=== PATIENT | male | born 1975 | race Caucasian/White ===

== ENCOUNTER 2022-11-12 16:46 | Emergency (ER) | payer OTHER, SELFPAY ==
[2022-11-12] VITALS (8 sets, daily range): BP systolic 95–107; BP diastolic 51–75; PULSE 88–100; RESP 12–24; TEMP 36.5–36.8; O2SAT 100
--- NOTE | ~2022-11-12 | CT_ITS ---
EXAMINATION: CT abdomen pelvis w con DATE: 11/12/2022 21:28 INDICATION: Left lower quadrant abdominal pain. Black tarry stools. Diaphoresis. TECHNIQUE: Computed tomography (CT) of the abdomen and pelvis was performed with 100 CC Omnipaque 350 intravenous contrast. Automated exposure control and iterative reconstruction technique were employe d. Exam dose: 345.36 mGy-cm total exam DLP. COMPARISON: 12/27/2009 CT abdomen pelvis is not available from PACS at this time. FINDINGS: The lung bases are clear. Normal heart size. No pericardial or pleural effusion. The gallbladder appears to be surgically absent. There is moderate prominence of the intrahepatic and extrahepatic bile ducts, which may be secondary to the cholecystectomy. Prominent varices are identified. The spleen measures 13 cm vertical dimension, it upper normal range . Prominent amorphous calcifications of the uncinate process and head of the pancreas consistent with c hronic pancreatitis. No hepatic, splenic or pancreatic space-occupying mass lesion is evident. Normal morphology of the adrenal glands. Small cyst of the lower pole of the left kidney. The kidneys are otherwise unremarkable. No urinary t ract calculus or hydroureteronephrosis. Normal caliber of the abdominal aorta. No intraperitoneal or retroperitoneal or pelvic mass lesion or adenopathy or ascites is detected. Moderate prostate enlargement. The urinary bladder is unremarkable. There is a prominent amount fecal material in the colon. No bowel obstruction is detected. Normal jada endix. Included skeletal structures are unremarkable. IMPRESSION: Varices and borderline splenomegaly consistent with portal venous hypertension Chronic pancreatitis Status post cholecystectomy, which may account for moderate prominence of the intrahepatic and extrah epatic bile ducts Reviewed, dictated and finalized at [facility]. Reviewed, dictated and finalized at [facility]. IMPRESSION: Varices and borderline splenomegaly consistent with portal venous hypertension Chronic pancreatitis Status post cholecystectomy, which may account for moderate prominence of the i ntrahepatic and extrahepatic bile ducts
--- NOTE | ~2022-11-12 | XR_ITS ---
EXAMINATION: XR chest 1V portable DATE: 11/13/2022 00:28 INDICATION: Upper gastrointestinal bleed TECHNIQUE: frontal view of the chest was obtained. COMPARISON: Chest radiograph dated 12/28/2009 FINDINGS: The lungs remain clear with no focal airspace opacities, pulmonary edema, pleural effusion or pneumot horax. The cardiomediastinal silhouette is normal. Visualized bones and soft tissues are unremarkable . IMPRESSION: 1. No acute cardiopulmonary disease. Reviewed, dictated and finalized at [facility].
[2022-11-12 17:56] LABS: Basophils Absolute Auto 0.1 K/mm3 (0.0-0.1); Basophils Percent Auto 1.1 % (0.2-1.2); Eosinophils Percent Auto 0.3 % (0-4.4); Hematocrit 31.6 % (42.0-52.0); Hemoglobin 10.6 g/dL (14.0-18.0); Immature Granulocyte Absolute 0.05 K/mm3 (0.00-0.031); Immature Granulocyte Percent A 0.5 % (0-0.5); Lymphocytes Absolute Auto 1.42 K/mm3 (0.9-3.2); Mean Corpuscular HGB Conc 33.5 g/dl (32-36); Mean Corpuscular Hemoglobin 31.1 pg (26-34); Mean Corpuscular Volume 92.7 fl (80-100); Mean Platelet Volume 11.3 fl (7.4-10.4); Monocytes Percent Auto 10.4 % (2.6-8.5); Neutrophils Absolute Auto 6.9 K/mm3 (1.3-6.7); Neutrophils Percent Auto 72.7 % (45.5-73.1); Platelet Count Result 234 k/mm3 (150-375); Red Blood Count 3.41 M/mm3 (4.6-6.20); White Blood Count 9.5 K/mm3 (4.5-10.0)
[2022-11-12 18:05] LABS: Alanine Aminotransferase 26 U/L (6-50); Albumin Level 3.8 g/dL (3.5-5.1); Alkaline Phosphatase 62 U/L (38-126); Anion Gap 12 mmol/L (8-16); Aspartate Amino Transferase 24 U/L (17-59); Bilirubin,Total 0.8 mg/dL (0.2-1.3); Blood Urea Nitrogen 20 mg/dL (9-20); Calcium 8.7 mg/dL (8.4-10.2); Carbon Dioxide 26 mmol/L (22-30); Chloride 93 mmol/L (98-107); Estimated CRCL calculation 116 ml/min; Estimated Glomerular Filt Rate > 60; Glucose 441 mg/dL (65-110); Potassium 4.8 mmol/L (3.4-5.0); Sodium 131 mmol/L (137-145)
[2022-11-12 18:28] LABS: INR 1.2; Prothrombin Time 14.3 Seconds (11.1-14.7)
[2022-11-12 18:29] LABS: Partial Thromboplastin Time 23.3 SECONDS (22.3-36.8)
[2022-11-12] MEDS: SODIUM CHLORIDE 0.9% IV 2,000 ML 999 ML IV CONT (23:21)
[2022-11-13] VITALS (33 sets, daily range): BP systolic 90–117; BP diastolic 56–89; PULSE 71–96; RESP 9–20; TEMP 36.4–36.6; O2SAT 97–100
--- NOTE | 2022-11-13 00:10 | ED.GENADULT ---
HPI - General Adult General Chief complaint: GI Bleed Stated complaint: blood in stool, diaphoretic Time Seen by Provider: 11/12/22 22:49 History of Present Illness HPI narrative: This is a 47-year-old male presenting to ED with dark tarry stools. Starting 2 days ago the patient had an episode where he vomited up small amount of red blood then has been having dark tarry diarrhea since then. The diarrhea had relented and is more solid however today he became dizzy diaphoretic and lightheaded. He then started to have sharp left-sided abdominal pain that radiates to the right side that is 7 out 10 intensity and constant. He has never experienced before there are no exacerbating alleviating factors. He has had chills throughout the day but no fevers. No chest pain or difficulty breathing. Patient had a complicated medical course approximately 10 years ago when he had an infected gallbladder that resulted in open surgery, trach and PEG tube that he has since recovered from. Asa result of his surgery he is now a type 1 diabetic and takes insulin. Related Data Allergies Allergy/AdvReac Type Severity Reaction Status Date / Time No Known Allergies Allergy Verified 09/29/15 21:24 [facility] Past Medical History Medical History Cholecystectomy planned Pacemaker Now removed Type 1 diabetes mellitus with hyperglycemia, with long-term current use of insulin Family History Family History Other Family history of alcoholism Family history of arthritis Family history of thyroid disease Social History Social History Smoking status: Never smoker Alcohol intake: current Exam Narrative: APPEARANCE: No apparent distress. Head: atraumatic. EYES: EOMI, NOSE: Atraumatic NECK: Trachea midline RESPIRATORY: No increased rate of breathing , clear to auscultation CARDIOVASCULAR: slightly tachycardic, slightly pale ABDOMINAL: Non-distended, tenderness to palpation on the left side of the abdomen with voluntary guarding Rectal exam revealed: reddish black stool in the rectal vault that was Hemoccult positive. MUSCULOSKELETAl: No obvious deformities NEURO: Alert. Moving 4/4 extremities SKIN:: Warm, dry. Normal color PSYCHIATRIC: Normal affect Course Vital Signs Vital signs: Vital Signs Temperature 97.7 F 04/06/23 17:30 Pulse Rate 100 11/12/22 17:30 Respiratory Rate 18 11/12/22 17:30 Blood Pressure 95/51 L 11/12/22 17:30 Pulse Oximetry 100 11/12/22 17:30 Oxygen Delivery Room Air 11/12/22 17:30 Temperature 97.6 F 11/13/22 08:21 Pulse Rate 73 11/13/22 08:21 Respiratory Rate 12 11/13/22 08:21 Blood Pressure 97/63 L 11/13/22 08:21 Pulse Oximetry 100 11/13/22 08:21 Oxygen Delivery Room Air 11/12/22 17:30 Medical Decision Making MDM Narrative Medical decision making narrative: -Presentation: 47-year-old male presenting with Melanotic stools and abdominal pain. Lab work, type and screen CT abdomen pelvis have been ordered. 2 large-bore IVs are started. Patient was fluid resuscitated, given 80 mg Protonix And ceftriaxone. -DDX includes but is not limited to: peptic ulcer disease, upper GI bleed, -Co-morbidities complicating care: type 1 diabetes, complicated surgical course -Social determinants of health: patient works in sales. Recently moved back to the area for work. -External Chart Review: None -Hx from independent Sources: mother @ bedside Saima -Discussion of Management/Consultants: Mary Transfer line - Dr. Gomez , Hospitalist, [facility]. -Independent interpretation of studies: CBC showed initial hemoglobin of 10.6. No white blood cell count. Metabolic panel showed hyponatremia and hypochloremia. Kidney function within normal limits. Glucose elevated at 440. no evidence of DKA/HHS CT abdome
--- NOTE | 2022-11-13 00:15 | ECG_ITS ---
Measurements Intervals Emmett Rate: 85 P: 37 MO: 166 QRS: -11 QRSD: 95 T: 42 QT: 389 QTc: 463 Interpretive Statements SINUS RHYTHM LOW QRS VOLTAGE LEFTWARD AXIS BORDERLINE ECG NO PREVIOUS ECG AVAILABLE FOR COMPARISON Electronically Signed On 11-13-2022 7:53:22 CDT by Jaxon Quiros M.D.
[2022-11-13] MEDS: HYDROmorphone HCL INJ (*CRX) 1 MG/ML SYR 0.5 MG IV PUSH ×2 (00:42→06:48)
[2022-11-13] MEDS: PANTOPRAZOLE SODIUM IV 40 MG VIAL 80 MG IV PUSH (00:43)
[2022-11-13 02:35] LABS: Influenza A QL RT-PCR Negative (Negative); Influenza B QL RT-PCR Negative (Negative); RSV RNA, RT-PCR Negative (Negative); SARS-CoV-2 RNA PCR Negative
[2022-11-13] MEDS: OCTREOTIDE ACETATE 50 MCG/ML VIAL IV PUSH (02:49)
[2022-11-13] MEDS: METOCLOPRAMIDE HCL INJ 10 MG/2 ML VIAL IV PUSH (03:48)
[2022-11-13 04:05] LABS: Hematocrit 24.3 % (42.0-52.0); Hemoglobin 8.5 g/dL (14.0-18.0)
[2022-11-13] MEDS: SODIUM CHLORIDE 0.9% IV 1,000 ML 999 ML (06:49)
[2022-11-13] MEDS: SODIUM CHLORIDE 0.9% IV 1,000 ML 125 ML IV CONT (06:49)
[2022-11-13] MEDS: TUBING, BLOOD SET 1 EACH XX (06:56)
== END 2022-11-13 08:30 | disposition short-term general hospital (02) ==
PROVIDERS: Emergency Medicine; Emergency Provider Emergency Medicine; PCP Family Medicine
DX: I85.01 Esophageal varices with bleeding (principal); D64.9 Anemia, unspecified; E10.9 Type 1 diabetes mellitus without complications; Z79.4 Long term (current) use of insulin; Z20.822 Contact with and (suspected) exposure to COVID-19
CPT/HCPCS: 36415; 36430; 71045; 74177; 80053; 85014; 85018; 85025; 85610; 85730; 86850; 86900; 86901; 86923; 87637; 93005; 96360; 96365; 96375; 99285; C9113; J0696; J1170; J2354; J2765; J7030; P9016; Q9967

== ENCOUNTER 2023-12-30 11:19 | Outpatient (CLI) | payer OTHER, SELFPAY ==
[2023-12-30 13:51] LABS: Basophils Absolute Auto 0.1 K/mm3 (0.0-0.1); Basophils Percent Auto 1.3 % (0.2-1.2); Eosinophils Absolute Auto 0.1 K/mm3 (0-0.3); Eosinophils Percent Auto 1.5 % (0-4.4); Hematocrit 47.6 % (42.0-52.0); Immature Granulocyte Absolute 0.01 K/mm3 (0.00-0.031); Immature Granulocyte Percent A 0.2 % (0-0.5); Lymphocytes Absolute Auto 0.79 K/mm3 (0.9-3.2); Lymphocytes Percent Auto 16.5 % (18.3-44.2); Mean Corpuscular HGB Conc 33.6 g/dl (32-36); Mean Corpuscular Hemoglobin 30.4 pg (26-34); Mean Corpuscular Volume 90.5 fl (80-100); Mean Platelet Volume 12.5 fl (7.4-10.4); Monocytes Absolute Auto 0.6 K/mm3 (0.1-0.6); Monocytes Percent Auto 13.1 % (2.6-8.5); Neutrophils Absolute Auto 3.2 K/mm3 (1.3-6.7); Neutrophils Percent Auto 67.4 % (45.5-73.1); Platelet Count Result 151 k/mm3 (150-375); Red Blood Count 5.26 M/mm3 (4.6-6.20); Red Cell Distribution Width 13.3 % (11.5-14.5); White Blood Count 4.8 K/mm3 (4.5-10.0)
[2023-12-30 14:28] LABS: Alanine Aminotransferase 74 U/L (6-50); Albumin Level 4.4 g/dL (3.5-5.1); Alkaline Phosphatase 72 U/L (38-126); Anion Gap 7 mmol/L (4-12); Aspartate Amino Transferase 85 U/L (17-59); Bilirubin,Total 0.6 mg/dL (0.2-1.3); Blood Urea Nitrogen 18 mg/dL (9-20); Calcium 9.1 mg/dL (8.4-10.2); Carbon Dioxide 32 mmol/L (22-30); Chloride 98 mmol/L (98-107); Cholesterol 144 mg/dL (0-200); Estimated Glomerular Filt Rate > 60; Glucose 207 mg/dL (65-110); HDL Direct 59 mg/dL; Potassium 4.1 mmol/L (3.4-5.0); Sodium 137 mmol/L (137-145); Triglycerides 85 mg/dL (<150)
[2023-12-30 14:39] LABS: LDL Cholesterol Direct 68 mg/dL
[2023-12-30 14:50] LABS: Hemoglobin A1C 10.3 % (<5.7)
[2023-12-30 16:32] LABS: Magnesium 2.1 mg/dL (1.6-2.3)
== END 2023-12-30 11:20 | disposition home or self-care (01) ==
LOC: ANHGOSHLAB 11:20
PROVIDERS: PCP Internal Medicine; Visit Provider Nurse Practitioner
DX: E10.65 Type 1 diabetes mellitus with hyperglycemia (principal); E83.42 Hypomagnesemia
CPT/HCPCS: 36415; 80053; 80061; 83036; 83735; 85025

== ENCOUNTER 2024-02-21 07:22 | Outpatient (CLI) | payer OTHER, SELFPAY ==
--- NOTE | ~2024-02-21 | MR_ITS ---
EXAMINATION: MR MRCP wo/w con/w 3D wo ind DATE: 02/21/2024 08:43 INDICATION: Other specified disease of biliary tract TECHNIQUE: Magnetic resonance imaging (MRI) of the abdomen was performed without and with 15 mL Multi dillon intravenous contrast. Sequences included coronal T2-weighted SS-FSE, coronal T2-weighted FS SS- FSE, coronal T2-weighted FS FIESTA, axial T2-weighted FS FIESTA, axial T2-weighted FIESTA, sagittal T 2-weighted SS-FSE, axial T1-weighted dual-echo FSPGR, axial T2-weighted SS-FSE, axial T1-weighted LAV A, axial T2-weighted STIR FSE. Thick-slab T2-weighted FRFSE-XL images were obtained for magnetic reso nance cholangiopancreatography (MRCP). Rotating maximum intensity projection 3-D reconstructions of t he volumetric data were created by the technologist. Postcontrast sequences included a time course of axial T1-weighted LAVA. COMPARISON: CT dated 11/12/2022 FINDINGS: ABDOMEN MRI: Heart size is normal. No pericardial or pleural effusion. Bilateral kidneys and adrenal glands are no rmal. No bowel obstruction. No pathologically enlarged abdominal lymphadenopathy. Bones are unremarka ble with normal marrow signal throughout. Again seen is mild intrahepatic biliary ductal dilation. The gallbladder is nonvisualized and likely surgically absent. Splenomegaly measuring 15.8 cm in maximal craniocaudal length consistent with port al venous hypertension. Again seen are multiple large portosystemic collaterals with gastroesophageal varices. There are also a few small left splenorenal collaterals. Incidentally noted are development al variant circumaortic aortic left renal veins. The main portal vein tapers prominently towards the region of the head of the pancreas which is better appreciated on prior CT where there are multiple c alcifications and parenchymal atrophy of the pancreas and several small T2 hyperintense cystic lesion s or dilated pancreatic side branches at the head of the pancreas, all likely sequela of chronic panc reatitis and suggesting either secondary occlusion or severe stenosis at the confluence of the superi or mesenteric, splenic and main portal veins and accounting for the presence of the portosystemic col laterals. There is prominent wall thickening of the duodenum which also appears to result from amando us varices which appear to drain directly into the main portal vein. ABDOMEN MRCP: The common hepatic duct measures up to 12 mm in maximal diameter tapering to 6 mm at its confluence w ith the dilated cystic duct remnant which measures up to 5 mm and maximal diameter. The common bile d uct appear short tapering rapidly in the region of the parenchymal calcifications at the head of the pancreas. No intraluminal filling defect to suggest choledocholithiasis. IMPRESSION: 1. Mild intra and extra hepatic biliary ductal dilation with tapering of the common bile duct in the region of the head of the pancreas but without evident choledocholithiasis. This suggests a stricture of the common bile duct with no definitive mass at the head of the pancreas to suggest malignancy. 2. Prominent portosystemic collaterals situated between the stomach, pancreas and beto hepatis as we ll as prominent duodenal and gastroesophageal varices. This appears to result from an occlusion or se jerel stenosis at the confluence of the superior mesenteric vein, splenic vein and portal vein which a long with the likely stricture in the nearby common bile duct likely represents sequela of chronic pa ncreatitis. 3. No definitive pancreatic mass suspicious for neoplasm evident however recurrence MRI or prior CT i maging however assessment is limited by the change of chronic pancreatitis and the numerous systemic collaterals further exaggerated on the MR imaging by small amount of motion artifact. Reviewed, dictated and finalized at location [facility]. Electronically signed by Marcy
== END 2024-02-21 07:23 | disposition home or self-care (01) ==
PROVIDERS: PCP Internal Medicine; Visit Provider Nurse Practitioner
DX: K83.8 Other specified diseases of biliary tract (principal); I86.4 Gastric varices; R16.1 Splenomegaly, not elsewhere classified; R74.8 Abnormal levels of other serum enzymes; K86.1 Other chronic pancreatitis
CPT/HCPCS: 74183; 76376; A9577